=== PATIENT | male | born 1970 | race Caucasian/White ===

== ENCOUNTER 2017-05-21 18:19 | Emergency (ER) | payer OTHER ==
[~2017-05-21] VITALS: Ht 182.9 cm; Wt 79.4 kg
[~2017-05-21 18:19] MED LIST: ALBU90I INH; ALBU90OI6 INH; HYDACE5 PO; IBUP600 PO; IBUP800 PO; MEDICAL MARIJUANA; PRED20 PO; RXHYD5325 PO
[2017-05-21] MEDS ORDERED: PSEU120ER PO (19:11)
[2017-05-21] MEDS ORDERED: Cheratussin AC118 ML PO (19:11)
[2017-05-21] MEDS ORDERED: BENZ100A PO (19:11)
[2017-05-21] MEDS ORDERED: Mucinex600 MG PO (19:11)
[2018-01-01] MEDS ORDERED: HYDR1TAB94 PO (16:04)
== END 2017-05-21 19:25 | disposition home or self-care (01) ==
LOC: ER 18:19
DX: J45.909 Unspecified asthma, uncomplicated (principal); J06.9 Acute upper respiratory infection, unspecified; Z87.891 Personal history of nicotine dependence; Z88.0 Allergy status to penicillin
CPT/HCPCS: 99283; J1100

== ENCOUNTER 2017-09-04 21:56 | Emergency (ER) | payer OTHER ==
[~2017-09-04] VITALS: Ht 182.9 cm; Wt 83.0 kg
[~2017-09-04 21:56] MED LIST changes: +BENZ100A PO; +Cheratussin AC118 ML PO; +Mucinex600 MG PO; +PSEU120ER PO
== END 2017-09-04 23:00 | disposition home or self-care (01) ==
LOC: ER 21:56
DX: S20.212A Contusion of left front wall of thorax, initial encounter (principal); J45.909 Unspecified asthma, uncomplicated; Z88.0 Allergy status to penicillin; Z87.891 Personal history of nicotine dependence; W22.8XXA Striking against or struck by other objects, initial encounter
CPT/HCPCS: 81000; 99283

== ENCOUNTER → 2017-11-21 | Outpatient (CLI) | payer OTHER | END | disposition home or self-care (01) | LOC: LAB EV 13:32 → LAB SHORT 13:32 | DX: M79.675 Pain in left toe(s) (principal) | CPT/HCPCS: 84550 ==

== ENCOUNTER 2017-12-30 17:44 | Emergency (ER) | payer OTHER ==
[~2017-12-30] VITALS: Ht 165.1 cm; Wt 77.1 kg
[2017-12-30] MEDS ORDERED: Cleocin HCl300 MG PO (19:20)
[2018-01-01] MEDS ORDERED: HYDR1TAB94 PO (16:04)
== END 2017-12-30 20:05 | disposition home or self-care (01) ==
LOC: ER 17:44
DX: R22.0 Localized swelling, mass and lump, head (principal); Z88.0 Allergy status to penicillin; J45.909 Unspecified asthma, uncomplicated; Z87.891 Personal history of nicotine dependence
CPT/HCPCS: 64400; 99282-25

== ENCOUNTER 2018-01-01 23:44 | Emergency (ER) | payer OTHER ==
[~2018-01-01] VITALS: Ht 182.9 cm; Wt 76.7 kg
[~2018-01-01 23:44] MED LIST changes: +Cleocin HCl300 MG PO; +HYDR1TAB94 PO
[2018-01-03] MEDS ORDERED: CLINDAMYCI900 MG/51 IV (08:18)
== END 2018-01-02 01:56 | disposition home or self-care (01) ==
LOC: ER 23:44
DX: L03.211 Cellulitis of face (principal); K08.89 Other specified disorders of teeth and supporting structures; Z88.0 Allergy status to penicillin; Z79.899 Other long term (current) drug therapy; J45.909 Unspecified asthma, uncomplicated; Z87.891 Personal history of nicotine dependence
CPT/HCPCS: 96365; 99282-25

== ENCOUNTER 2018-01-02 00:05 | Day surgery (SDC) | payer OTHER ==
[2018-01-03] MEDS ORDERED: CLINDAMYCI900 MG/51 IV (08:18)
== END 2018-01-02 16:12 | disposition home or self-care (01) ==
LOC: ATC 00:05
DX: K04.7 Periapical abscess without sinus (principal); Z88.0 Allergy status to penicillin; Z87.891 Personal history of nicotine dependence
CPT/HCPCS: 96365

== ENCOUNTER 2018-01-02 22:29 | Emergency (ER) | payer OTHER ==
[~2018-01-02] VITALS: Ht 182.9 cm; Wt 77.6 kg
[2018-01-03] MEDS ORDERED: CLINDAMYCI900 MG/51 IV (08:18)
== END 2018-01-03 00:15 | disposition home or self-care (01) ==
LOC: ER 22:29
DX: K04.7 Periapical abscess without sinus (principal); K02.9 Dental caries, unspecified; Z88.0 Allergy status to penicillin; Z87.891 Personal history of nicotine dependence
CPT/HCPCS: 96365; 99281-25

== ENCOUNTER 2018-01-03 00:13 | Day surgery (SDC) | payer OTHER ==
[2018-01-03] MEDS ORDERED: CLINDAMYCI900 MG/51 IV (08:18)
== END 2018-01-03 16:39 | disposition home or self-care (01) ==
LOC: ATC 00:13
DX: K04.7 Periapical abscess without sinus (principal); Z88.0 Allergy status to penicillin; Z87.891 Personal history of nicotine dependence
CPT/HCPCS: 96365; 99281-25

== ENCOUNTER 2018-01-03 22:55 | Emergency (ER) | payer OTHER ==
[~2018-01-03] VITALS: Ht 185.4 cm; Wt 77.1 kg
[~2018-01-03 22:55] MED LIST changes: +CLINDAMYCI900 MG/51 IV
== END 2018-01-04 00:48 | disposition home or self-care (01) ==
LOC: ER 22:55
DX: K04.7 Periapical abscess without sinus (principal); Z88.0 Allergy status to penicillin; Z79.2 Long term (current) use of antibiotics; J45.909 Unspecified asthma, uncomplicated; Z87.891 Personal history of nicotine dependence
CPT/HCPCS: 96365; 99281-25

== ENCOUNTER 2018-01-04 00:25 | Day surgery (SDC) | payer OTHER | END 2018-01-04 08:53 | disposition home or self-care (01) | LOC: ATC 00:25 | DX: K04.7 Periapical abscess without sinus (principal); Z88.0 Allergy status to penicillin; Z87.891 Personal history of nicotine dependence | CPT/HCPCS: 96365 ==

== ENCOUNTER 2022-03-22 09:16 | Day surgery (SDC) | payer OTHER ==
[~2022-03-22] VITALS: Ht 182.9 cm; Wt 83.2 kg
[2022-03-22] MEDS ORDERED: ALBU90OI (10:02)
[2022-03-22] MEDS ORDERED: EPIPEN0.3 MG/0.3 (10:02)
[2022-03-22] MEDS ORDERED: FLUT1DIS2 (10:03)
== END 2022-03-22 11:17 | disposition home or self-care (01) ==
LOC: ORSCSDS 09:16
PROVIDERS: Surgery
PROC: 0DBN8ZX Excision of Sigmoid Colon, Via Natural or Artificial Opening Endoscopic, Diagnostic (ICD-10-PCS; principal; 2022-03-22 10:30)
DX: Z12.11 Encounter for screening for malignant neoplasm of colon (principal); K63.5 Polyp of colon; J45.909 Unspecified asthma, uncomplicated; M25.50 Pain in unspecified joint; Z79.899 Other long term (current) drug therapy
CPT/HCPCS: 88305; J2704; J7120